=== PATIENT | female | born 1965 | race Caucasian/White ===

== ENCOUNTER 2017-01-20 16:38 | Emergency (ER) | payer OTHER ==
[~2017-01-20] VITALS: Ht 165.1 cm; Wt 99.5 kg
[~2017-01-20 16:38] MED LIST: AMLO5TAB4 PO; HYDR-902 PO; LEVO25TA53 PO; LORA10TA3 PO; METH750T93 PO; OMEP20CA16 PO; PRED20TA PO
[2017-01-20 16:43] VITALS: Ht 165.1 cm; Wt 99.5 kg
[2017-01-20] MEDS ORDERED: HYDROCODONE/APAP (5/325) TAB PO ONE (19:30)
--- NOTE | 2017-01-20 20:08 | RADRPT ---
PROCEDURE: XR Tibia and Fibula. CLINICAL INDICATION: left wright injury TECHNIQUE: AP, lateral and oblique views of the left tibia and fibula were obtained. COMPARISON: No prior studies are available for comparison. FINDINGS: There is normal mineralization and alignment. No fracture or osseous lesion is identified. The joint s are unremarkable. There are normal soft tissues without evidence of soft tissue swelling. There is a small plantar calcaneal spur. IMPRESSION: Normal left tibia and fibula, without fracture. Small plantar calcaneal spur. RPTAT: HBST .Ant Tyler MD, MD Date Time Electronically viewed and signed by .Ant Tyler MD, on 01/20/2017 20:08 .T/
--- NOTE | 2017-01-20 20:08 | RADRPT ---
PROCEDURE: Left knee x-ray CLINICAL INDICATION: left knee injury TECHNIQUE: Multiple views of the knee were obtained. COMPARISON: None FINDINGS: There is normal mineralization. No fracture is identified. There are no significant degenerative changes. There is a small joint effusion. There is no significant soft tissue swelling. IMPRESSION: A small joint effusion is present. Otherwise, no significant abnormalities are identified. RPTAT:AAJJ Physician Annamarie Date Time Electronically viewed and signed by Cezar Mcmillan Physician on 01/20/2017 20:08 DAT/
[2017-01-20] MEDS ORDERED: ACET500C5 PO (21:17)
--- NOTE | 2017-01-20 21:35 | ERD ---
ER Documentation Chief Complaint Date/Time DATE: 01/20/17 TIME: 21:30 Chief Complaint Complains of knee pain since today HPI 31-year-old female patient with medical history of hypertension, hypothyroidism presents the ED complaining of knee pain and wright pain that started earlier today. Patient's daughter reports that she was walking and was trying to catch the bus and accidentally twisted her left knee and heard a crack. Describes the pain as achy and rates a 10 out of 10. Denies taking any medications. Denies any loss of sensation, loss of range of motion, fever, chills, nausea, vomiting, weakness, numbness or tingling. Denies falling. Denies any head or neck injuries. Denies any loss of consciousness. ROS All systems reviewed and are negative except as per history of present illness. Medications Home Meds Active Scripts Acetaminophen* (Tylophen*) 500 Mg Capsule, 1 CAP PO Q6H Y for PAIN AND OR ELEVATED TEMP, #20 CAP Prov:MAYO PAINTER PA-C 01/20/17 Prednisone* (Prednisone*) 20 Mg Tab, 60 MG PO DAILY for 5 Days, TAB Prov:ELEAZAR BELCHER DO 01/10/16 Methocarbamol* (Robaxin*) 750 Mg Tablet, 750 MG PO TID, #30 TAB Prov:ELEAZAR BELCHER DO 01/10/16 Hydrocodone/Acetaminophen ([place] 10-325 Tablet) 1 Each Tablet, 1 TAB PO Q6H Y for PAIN, #20 TAB Prov:ELEAZAR BELCHER DO 01/10/16 Reported Medications Omeprazole* (Omeprazole*) 20 Mg Capsule.dr, 20 MG PO QAM, CAP 02/13/14 Loratadine* (Loratadine*) 10 Mg Tablet, 10 MG PO DAILY, TAB 02/13/14 Levothyroxine Sodium* (Levothyroxine Sodium*) 25 Mcg Tablet, 25 MCG PO DAILY, TAB 02/13/14 Amlodipine Besylate* (Norvasc*) 5 Mg Tablet, 5 MG PO DAILY 04/19/11 Allergies Allergies: Coded Allergies: aspirin (Verified Allergy, Mild, 11/12/13) PMhx/Soc History of Surgery: Yes (appendix, hysterectomy) Anesthesia Reaction: No Hx Neurological Disorder: No Hx Respiratory Disorders: No Hx Cardiac Disorders: Yes (htn) Hx Psychiatric Problems: No Hx Miscellaneous Medical Probl: Yes (pyloric stenosis; thyroid problems, arthritis) Hx Alcohol Use: No Hx Substance Use: No Hx Tobacco Use: No Smoking Status: Never smoker Physical Exam Vitals Vital Signs Date Time Temp Pulse Resp B/P Pulse Ox O2 Delivery O2 Flow Rate FiO2 01/20/17 16:43 98.7 85 20 151/72 99 Physical Exam Const: [id number], well-nourished. In no acute distress. Head: Atraumatic, normocephalic Eyes: Normal Conjunctiva without injection ENT: Normal external ear, nose and mouth. Neck: Full range of motion. No meningismus. Resp: Clear to auscultation bilaterally. No wheezing, rhonchi, rales, or crackles. No accessory muscle use. No retractions. Cardio: Regular rate and rhythm, no murmurs Skin: No petechiae or rashes Back: No midline tenderness. No CVA tenderness. Ext: No cyanosis, or edema. Cap refill less than 2 seconds. Distal pulses intact bilaterally. Tenderness to palpation of the posterior popliteal fossa of the left knee patella and inferior anterior wright. No deformities noted. No warmth to touch. No erythema or edema. Limited range of motion however patient still able to bilateral flex and extend her knees. Limping gait. Neur: Awake and alert. Limping gait and coordination. Muscle strength 5/5. Sensation intact bilaterally. Psych: Normal Mood and Affect Results 24 hrs Current Medications Medications (Trade) Dose Ordered Sig/Pola Route PRN Reason Start Time Stop Time Status Last Admin Dose Admin Acetaminophen/ Hydrocodone Bitart ([place] (5/325)) 1 tab ONCE ONCE PO 01/20/17 19:30 01/20/17 19:31 DC 01/20/17 19:32 Procedures/MDM 31-year-old female patient with past medical history of hypertension, thyroidism presents to the ED complaining of left knee and wright injury sustained earlier today. Patient is afebrile and nontoxic-appearing. Patient' s normal vital signs. Patient was given [place] here in the ED with improvement of her pain. A left knee x-ray, left tib fib was ordered to further evaluate patient. PROCEDURE: Left knee x-ray CLINICAL INDICATION: left knee injury TECHNIQUE: Multiple views of the knee were obtained. COMPARISON: None FINDINGS: There is normal mineralization. No fracture is identified. There are no significant degenerative changes. There is a small joint effusion. There is no significant soft tissue swelling. IMPRESSION: A small joint effusion is present. Otherwise, no significant abnormalities are identified. PROCEDURE: XR Tibia and Fibula. CLINICAL INDICATION: left wright injury TECHNIQUE: AP, lateral and oblique views of the left tibia and fibula were obtained. COMPARISON: No prior studies are available for comparison. FINDINGS: There is normal mineralization and alignment. No fracture or osseous lesion is identified. The joints are unremarkable. There are normal soft tissues without evidence of soft tissue swelling. There is a small plantar calcaneal spur. IMPRESSION: Normal left tibia and fibula, without fracture. Small plantar calcaneal spur. Patient is placed in a mobilized. Crutches were given to patient to help with ambulation. Splint Assessment: Neurovascularly intact pre and post splint placement with good fit. Patient has a small joint effusion present. At this time a meniscus or ligamentous injury cannot be ruled out. Patient's extremity symptoms have stabilized while they have been evaluated in the department and are appropriate for outpatient follow up. No evidence of fractures, dislocations, compartment syndrome, neurologic injury, vascular injury, open joint, open fracture, tendon laceration, septic arthritis, osteomyelitis, DVT, foreign body, or other emergent conditions. Discharge medications: Follow up with orthopedic physician in 3-4 days. Instructed patient to return to the ED sooner for any worsening symptoms. Patient's questions were answered. Patient understood and agreed with discharge plan. Patient discharged stable. Departure Diagnosis: Primary Impression: Knee injury Encounter type: initial encounter Laterality: left Qualified Code: S89.92XA - Injury of left knee, initial encounter Condition: Stable Patient Instructions: Reducing Knee Pain and Swelling, Knee Pain, Meniscus Injury (Possible) Referrals: [facility]PC[facility]) [facility] YOU HAVE RECEIVED A MEDICAL SCREENING EXAM AND THE RESULTS INDICATE THAT YOU DO NOT HAVE A CONDITION THAT REQUIRES URGENT TREATMENT IN THE EMERGENCY DEPARTMENT. FURTHER EVALUATION AND TREATMENT OF YOUR CONDITION CAN WAIT UNTIL YOU ARE SEEN IN YOUR DOCTORS OFFICE WITHIN THE NEXT 1-2 DAYS. IT IS YOUR RESPONSIBILITY TO MAKE AN APPOINTMENT FOR FOLOW-UP CARE. IF YOU HAVE A PRIMARY DOCTOR --you should call your primary doctor and schedule an appointment IF YOU DO NOT HAVE A PRIMARY DOCTOR YOU CAN CALL OUR PHYSICIAN REFERRAL HOTLINE AT IF YOU CAN NOT AFFORD TO SEE A PHYSICIAN YOU CAN CHOSE FROM THE FOLLOWING [facility] [address] [facility] [address] [email or web address] [address] [facility] [address] [facility] [address] [facility]. [facility] [address] [facility]. [facility] YOU HAVE RECEIVED A MEDICAL SCREENING EXAM AND THE RESULTS INDICATE THAT YOU DO NOT HAVE A CONDITION THAT REQUIRES URGENT TREATMENT IN THE EMERGENCY DEPARTMENT. FURTHER EVALUATION AND TREATMENT OF YOUR CONDITION CAN WAIT UNTIL YOU ARE SEEN IN YOUR DOCTORS OFFICE WITHIN THE NEXT 1-2 DAYS. IT IS YOUR RESPONSIBILITY TO MAKE AN APPOINTMENT FOR FOLOW-UP CARE. IF YOU HAVE A PRIMARY DOCTOR --you should call your primary doctor and schedule and appointment IF YOU DO NOT HAVE A PRIMARY DOCTOR YOU CAN CALL OUR PHYSICIAN REFERRAL HOTLINE AT . IF YOU CAN NOT AFFORD TO SEE A PHYSICIAN YOU CAN CHOSE FROM THE FOLLOWING [facility] INSTITUTIONS: [facility] [address] [place] [address] [facility] [address] [place] [place] [id number] [place] [address] [address] [place] [address] [facility] Urgent Care 7 a.m.- 11 p.m. Every Day of the Week NO APPOINTMENT OR AUTHORIZATION NEEDED [facility] Hours: Mon-Fri 9:00 AM - 5:00 PM Additional Instructions: Llame al doctor DAO y martin vera RADHA PARA DENTRO DE 2-3 BRITT para vera referencia a un mdico ortopdico. Dgale a la secretaria que nosotros le instruimos hacer esta radha.Avise o llame si almazan condicin se empeora antes de la radha. Regresa aqui si peor o no mejor. MAYO PAINTER PA-C Jan 20, 2017 21:35
== END 2017-01-20 21:29 | disposition home or self-care (01) ==
LOC: FTE 16:38
DX: S89.92XA Unspecified injury of left lower leg, initial encounter (principal); I10 Essential (primary) hypertension; E03.9 Hypothyroidism, unspecified; X50.9XXA Other and unspecified overexertion or strenuous movements or postures, initial encounter; Y92.9 Unspecified place or not applicable
CPT/HCPCS: 73562; 73590